=== PATIENT | male | born 1940 | race Caucasian/White ===

== ENCOUNTER → 2016-08-21 | Outpatient (CLI) | payer MEDICARE ==
[2016-08-21 10:53] LABS: HEMOGLOBIN 14.4 gm/dl (14.0-17.5); RED BLOOD COUNT 4.62 M/UL (4.20-5.50)
[2016-08-21 11:13] LABS: BUN/CREATININE RATIO 22 (0-10)
== END ==
LOC: LAB 09:46 → EDBD 09:46
PROVIDERS: Family Medicine
DX: I49.5 Sick sinus syndrome (principal); R00.1 Bradycardia, unspecified; E78.5 Hyperlipidemia, unspecified; K59.00 Constipation, unspecified
CPT/HCPCS: 36415; 80053; 80061; 84439; 84443; 84481; 85025